=== PATIENT | male | born 1980 | race Caucasian/White ===

== ENCOUNTER 2019-01-03 18:39 | Emergency (ER) | payer SELFPAY ==
[~2019-01-03] VITALS: Ht 185.4 cm; Wt 81.6 kg
[2019-01-03] MEDS ORDERED: NKM (18:49)
[2019-01-03 18:53] VITALS: BP 126/87
[2019-01-03] MEDS ORDERED: oxyCODONE HCL/Acetaminophen 5/325mg ORAL ONE (19:00)
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
[2019-01-03] MEDS ORDERED: NAPROXEN250 MG ORAL (19:40)
[2019-01-03] MEDS ORDERED: NORCO 5-325 TA1 EACH ORAL (19:40)
[2019-01-03 19:55] VITALS: BP 131/84
--- NOTE | 2019-01-04 10:13 | Diagnostic Imaging Report ---
Indication: Chest pain Technique: One view of the chest, 2 views of the left ribs Comparison: none Findings: Chest radiograph demonstrates clear lungs. Normal cardiomediastinal silhouette. Rib radiographs demonstrate no evidence of fracture. No pneumothorax. Impression: Negative
== END 2019-01-03 19:55 | disposition home or self-care (01) ==
LOC: EMR 19:22
DX: S22.32XA Fracture of one rib, left side, initial encounter for closed fracture (principal); Y04.2XXA Assault by strike against or bumped into by another person, initial encounter; Y92.9 Unspecified place or not applicable
CPT/HCPCS: 93005; 99283